=== PATIENT | male | born 1970 | race Caucasian/White ===

== ENCOUNTER 2017-06-14 16:40 | Emergency (ER) | payer BC ==
--- NOTE | 2017-06-14 17:12 | UC ---
Eye Complaint HPI - HPI Summary HPI Summary: left stye developing for several days, no fever, no improvement with warm wash cloth application. Denies discharge, blurred vision, or fever. No PMH - History of Current Complaint Chief Complaint: UCEye Stated Complaint: EYE IRRITATION Time Seen by Provider: 06/14/17 17:07 Hx Obtained From: Patient Onset/Duration: Sudden Onset, Lasting Days Severity Initially: Mild Severity Currently: Moderate Pain Intensity: 4 Location of Injury: Eye Lid (upper) Character: Dull Aggravating Factor(s): Nothing Alleviating Factor(s): Nothing - Risk Factors Penetrating Injury Risk Factor: Negative Globe Rupture Risk Factors: Negative Acute Glaucoma Risk Factors: Negative Optic Artery Occlusion Risk Factors: Negative - Allergies/Home Medications Allergies/Adverse Reactions: Allergies Allergy/AdvReac Type Severity Reaction Status Date / Time No Known Allergies Allergy Verified 06/14/17 17:04 PMH/Surg Hx/FS Hx/Imm Hx Previously Healthy: Yes - Surgical History Surgical History: None - Social History Alcohol Use: Occasionally Substance Use Type: None Smoking Status (MU): Heavy Every Day Tobacco Smoker Amount Used/How Often: 1 PPD Review of Systems Constitutional: Negative All Other Systems Reviewed And Are Negative: Yes Physical Exam Triage Information Reviewed: Yes Appearance: Well-Appearing, No Pain Distress, Well-Nourished - chalazion with localized erythema upper left eyelid, no discharge. Vital Signs: Initial Vital Signs Temp 97.4 F 06/14/17 17:02 Pulse 70 06/14/17 17:02 Resp 18 06/14/17 17:02 BP 157/89 06/14/17 17:02 Pulse Ox 99 06/14/17 17:02 Vital Signs Reviewed: Yes Eyes: Positive: Conjunctiva Clear, Other: - upper eyelid chalazion ENT: Positive: Hearing grossly normal, Pharynx normal Neck: Positive: Supple, Nontender Respiratory: Positive: Chest non-tender Cardiovascular: Positive: Pulses Normal, Brisk Capillary Refill Eye Complaint Course/Dx - Course Course Of Treatment: start keflex 500mg tid for 5 days and eye drops as prescribed. Smoking cessation recommended. Continue warm compresses with baby shampoo cleaning - Differential Dx/Diagnosis Provider Diagnoses: CHalazion Left upper eyelid. tobacco use Discharge - Sign-Out/Discharge Documenting (check all that apply): Discharge - Discharge Plan Condition: Stable Disposition: HOME Patient Education Materials: Stye (ED), Cephalexin (By mouth), Neomycin/ Polymyxin B/Hydrocortisone (Into the ear), How to Stop Smoking (ED), Hypertension (ED) Referrals: Collin Lofton MD [Primary Care Provider] - Additional Instructions: f/u with PCP to monitor BP - Billing Disposition and Condition Condition: STABLE Disposition: HOME
[2017-06-14 17:24] VITALS: BP 127/77
[2017-06-14] MEDS ORDERED: Cephalexin CAP* 500 MG PO ONE (17:30)
== END 2017-06-14 17:35 | disposition home or self-care (01) ==
LOC: UCEAST 16:40
DX: H00.14 Chalazion left upper eyelid (principal); F17.210 Nicotine dependence, cigarettes, uncomplicated
CPT/HCPCS: 99212; A9270-GY; G0463